=== PATIENT | male | born 1945 | race Hispanic/Latino ===

== ENCOUNTER → 2018-08-17 | Outpatient (CLI) | payer OTHER ==
[~2018-08-17] MED LIST: ATOR40TA69 PO; CLOP75TA14 PO; GLIP10TA9 PO; LISI40TA4 PO; METF-446 PO; TRAZ150T79 PO
== END | disposition home or self-care (01) ==
LOC: SHCH 09:07
PROVIDERS: ATTEND Internal Medicine Cardiovascular Disease
DX: I08.0 Rheumatic disorders of both mitral and aortic valves (principal); I25.10 Atherosclerotic heart disease of native coronary artery without angina pectoris; I11.9 Hypertensive heart disease without heart failure
CPT/HCPCS: 93306

== ENCOUNTER → 2019-12-07 | Outpatient (CLI) | payer OTHER | END | disposition home or self-care (01) | LOC: SHCH 12:44 | PROVIDERS: ATTEND Internal Medicine Cardiovascular Disease | DX: I65.23 Occlusion and stenosis of bilateral carotid arteries (principal); I25.5 Ischemic cardiomyopathy | CPT/HCPCS: 93880 ==

== ENCOUNTER → 2020-02-05 | Outpatient (CLI) | payer OTHER | END | disposition home or self-care (01) | LOC: SHCH 08:22 | PROVIDERS: ATTEND Internal Medicine Cardiovascular Disease | DX: I08.0 Rheumatic disorders of both mitral and aortic valves (principal); I25.10 Atherosclerotic heart disease of native coronary artery without angina pectoris; I10 Essential (primary) hypertension; E78.5 Hyperlipidemia, unspecified | CPT/HCPCS: 93306; 93356 ==

== ENCOUNTER 2020-03-07 06:47 | Day surgery (SDC) | payer OTHER ==
[2020-03-05 13:03] LABS: BASOPHILS % (AUTO) 0.4 % (0.0-5.0); EOSINOPHILS % (AUTO) 2.5 % (0.0-8.0); HEMATOCRIT 37.3 % (42-54); LYMPHOCYTES % (AUTO) 18.6 % (21.0-51.0); MEAN CORPUSCULAR HGB CONC 32.7 g/dL (32.0-36.0); MEAN CORPUSCULAR VOLUME 103.9 fL (79-99); MONOCYTES % (AUTO) 6.8 % (3.0-13.0); NEUTROPHILS % (AUTO) 71.4 % (40.0-77.0); PLATELET COUNT (AUTO) 189 K/uL (130-400); RED BLOOD CELL COUNT(AUTO) 3.59 MIL/uL (4.50-6.20); RED CELL DISTRIBUTION WIDTH 13.7 % (11.0-15.5); WHITE BLOOD COUNT (AUTO) 6.9 K/uL (4.8-10.8)
[2020-03-05 13:13] LABS: CREATININE 1.5 mg/dL (0.5-1.5); POTASSIUM 4.6 mmol/L (3.5-5.1)
[2020-03-05 13:14] LABS: INR 1.02 (0.85-1.15); PROTHROMBIN TIME 10.9 SEC (9.6-11.6)
[2020-03-05 13:15] LABS: PARTIAL THROMBOPLASTIN TIME 27.1 SEC (26.3-35.5)
[2020-03-06 09:18] VITALS: BP 140/73
[~2020-03-07] VITALS: Ht 165.1 cm; Wt 74.8 kg
[2020-03-07] VITALS (12 sets, daily range): BP systolic 117–163; BP diastolic 74–90
[~2020-03-07 06:47] MED LIST changes: -ATOR40TA69 PO; +CLINDAMYCIN 900 MG/D5% WATER 50 ML IV SCH; +DIETARY SUPPLEMENT PO; +SODIUM CHLORIDE 0.9% 1000ML 1,000 ML IV SCH
[2020-03-07] MEDS ORDERED: IODIXANOL 320 MG/ML 100 ML VIAL ONE (08:38)
[2020-03-07] MEDS ORDERED: MEPERIDINE-PF 25 MG/ML SYG ONE ×3 (08:39→10:10)
[2020-03-07] MEDS ORDERED: LIDOCAINE HCL 1% MDV 50ML VIAL ONE (08:39)
[2020-03-07] MEDS ORDERED: MIDAZOLAM HCL 1 MG/ML 2ML VIAL ONE ×3 (08:39→10:10)
[2020-03-07] MEDS ORDERED: VANCOMYCIN 1GM+NS 250ML 500 ML IV ONE (08:40)
[2020-03-07] MEDS ORDERED: BUPIVACAINE/PF 0.25% 30ML VIAL IJ ONE (09:02)
[2020-03-07] MEDS ORDERED: GLUCAGON 1MG KIT 1 MG ML IM PRN (11:00)
[2020-03-07] MEDS ORDERED: DEXTROSE 50%-WATER 50 ML DISP.SYRIN IV PRN (11:00)
[2020-03-07] MEDS ORDERED: ONDANSETRON HCL 4 MG/2 ML VIAL IV PRN (11:00)
[2020-03-07] MEDS ORDERED: ACETAMINOPHEN 325 MG TAB PO PRN (11:00)
[2020-03-07] MEDS ORDERED: INSULIN HUMULIN R 100 UNIT/ML 3ML SQ SCH (11:30)
== END 2020-03-07 18:10 | disposition home or self-care (01) ==
LOC: DAH 06:47
PROVIDERS: ATTEND Internal Medicine Cardiovascular Disease
DX: I25.5 Ischemic cardiomyopathy (principal); I44.7 Left bundle-branch block, unspecified; I11.0 Hypertensive heart disease with heart failure; I50.43 Acute on chronic combined systolic (congestive) and diastolic (congestive) heart failure; I25.10 Atherosclerotic heart disease of native coronary artery without angina pectoris; E11.51 Type 2 diabetes mellitus with diabetic peripheral angiopathy without gangrene; E78.5 Hyperlipidemia, unspecified; Z88.1 Allergy status to other antibiotic agents; Z88.0 Allergy status to penicillin; Z79.84 Long term (current) use of oral hypoglycemic drugs; Z79.899 Other long term (current) drug therapy; Z79.01 Long term (current) use of anticoagulants; Z95.5 Presence of coronary angioplasty implant and graft; Z98.890 Other specified postprocedural states
CPT/HCPCS: 33225; 33249; 36415; 71045; 80048; 82948 ×2; 85025; 85610; 85730; 93005; A4215; A4216; A4221; A4222; A4223 ×3; A4606; A4663; C1769 ×3; C1882; C1894; C1895; C1896; C1900; J2175 ×3; J2250 ×3; J3370; J3490 ×2; Q9967; 99156; 99157

== ENCOUNTER 2020-05-01 09:46 | Observation (INO) | payer OTHER ==
[~2020-05-01] VITALS: Ht 165.1 cm; Wt 70.5 kg
[~2020-05-01 09:46] MED LIST changes: -CLINDAMYCIN 900 MG/D5% WATER 50 ML IV SCH; -LISI40TA4 PO; -SODIUM CHLORIDE 0.9% 1000ML 1,000 ML IV SCH
[2020-05-01] MEDS ORDERED: FUROSEMIDE 10 MG/ML 4ML VIAL ONE (10:09)
[2020-05-01 10:39] LABS: BASOPHILS % (AUTO) 0.4 % (0.0-5.0); EOSINOPHILS % (AUTO) 3.9 % (0.0-8.0); HEMATOCRIT 37.7 % (42-54); LYMPHOCYTES % (AUTO) 14.6 % (21.0-51.0); MEAN CORPUSCULAR HGB CONC 32.4 g/dL (32.0-36.0); MEAN CORPUSCULAR VOLUME 101.9 fL (79-99); MONOCYTES % (AUTO) 8.5 % (3.0-13.0); NEUTROPHILS % (AUTO) 72.1 % (40.0-77.0); PLATELET COUNT (AUTO) 155 K/uL (130-400); RED CELL DISTRIBUTION WIDTH 14.5 % (11.0-15.5); WHITE BLOOD COUNT (AUTO) 7.9 K/uL (4.8-10.8)
[2020-05-01 10:56] LABS: POTASSIUM 3.9 mmol/L (3.5-5.1)
[2020-05-01 11:13] LABS: ALBUMIN 3.8 g/dL (3.5-5.0); BILIRUBIN,TOTAL 0.4 mg/dL (0.2-1.0); CREATININE 1.5 mg/dL (0.5-1.5); TOTAL PROTEIN, SERUM 9.1 g/dL (6.0-8.3)
[2020-05-01 11:16] LABS: B-TYPE NATRIURETIC PEPTIDE 842 pg/mL (0-100)
[2020-05-01] MEDS ORDERED: IPRATROPIUM/ALBUTEROL SULFATE 3 ML SOLUTION IH PRN (12:00)
[2020-05-01 12:39] LABS: HEMOGLOBIN A1C 7.7 % (4.0-6.0)
[2020-05-01 12:44] LABS: THYROID STIMULATING HORMONE 2.01 uIU/mL (0.36-3.74)
[2020-05-01] MEDS ORDERED: THIAMINE HCL 100 MG TABLET PO SCH (16:00)
[2020-05-01] MEDS ORDERED: FOLIC ACID 1 MG TABLET PO SCH (16:00)
[2020-05-01] MEDS ORDERED: DOXYCYCLINE 100MG+NS 250ML 250 ML IV ONE (16:08)
[2020-05-01] MEDS: INSULIN HUMULIN R 100 UNIT/ML 3ML SQ SCH ×2 (16:30→21:28)
[2020-05-01 17:00] VITALS: BP 131/78
[2020-05-01] MEDS: DOXYCYCLINE 100MG+NS 250ML 250 ML IV SCH (17:00)
[2020-05-01] MEDS: FUROSEMIDE 10 MG/ML 4ML VIAL IV SCH (18:22)
[2020-05-01] MEDS: ENOXAPARIN SODIUM 40 MG/0.4 ML SYRINGE SQ SCH (18:23)
[2020-05-01 20:36] VITALS: BP 131/82
[2020-05-01] MEDS: CARVEDILOL 3.125 MG TABLET PO SCH (21:26)
[2020-05-01] MEDS: FAMOTIDINE 20MG TAB 20 MG TAB PO SCH (21:26)
[2020-05-01 23:24] VITALS: BP 115/70
[2020-05-02 04:24] VITALS: BP 166/84
[2020-05-02] MEDS: FUROSEMIDE 10 MG/ML 4ML VIAL IV SCH (05:34)
[2020-05-02] MEDS: DOXYCYCLINE 100MG+NS 250ML 250 ML IV SCH (05:34)
[2020-05-02 05:36] LABS: BASOPHILS % (AUTO) 0.4 % (0.0-5.0); EOSINOPHILS % (AUTO) 5.3 % (0.0-8.0); HEMATOCRIT 36.4 % (42-54); MEAN CORPUSCULAR HEMOGLOBIN 32.9 pg (27.0-33.0); MEAN CORPUSCULAR HGB CONC 33.5 g/dL (32.0-36.0); MEAN CORPUSCULAR VOLUME 98.1 fL (79-99); NEUTROPHILS % (AUTO) 57.5 % (40.0-77.0); PLATELET COUNT (AUTO) 168 K/uL (130-400); RED BLOOD CELL COUNT(AUTO) 3.71 MIL/uL (4.50-6.20); RED CELL DISTRIBUTION WIDTH 14.1 % (11.0-15.5); WHITE BLOOD COUNT (AUTO) 7.5 K/uL (4.8-10.8)
[2020-05-02 06:09] LABS: ALBUMIN 3.6 g/dL (3.5-5.0); BILIRUBIN,TOTAL 0.5 mg/dL (0.2-1.0); CREATININE 1.7 mg/dL (0.5-1.5); MAGNESIUM 1.7 mg/dL (1.80-2.40); POTASSIUM 4.4 mmol/L (3.5-5.1); TOTAL PROTEIN, SERUM 7.8 g/dL (6.0-8.3)
[2020-05-02] MEDS: INSULIN HUMULIN R 100 UNIT/ML 3ML SQ SCH ×2 (06:21→12:56)
[2020-05-02 08:18] VITALS: BP 142/89
[2020-05-02] MEDS ORDERED: ASPIRIN 81MG TAB.CHEW PO SCH (09:00)
[2020-05-02] MEDS ORDERED: THIAMINE HCL 100 MG TABLET PO SCH (09:00)
[2020-05-02] MEDS ORDERED: FOLIC ACID 1 MG TABLET PO SCH (09:00)
[2020-05-02] MEDS: FAMOTIDINE 20MG TAB 20 MG TAB PO SCH (10:04)
[2020-05-02] MEDS: CARVEDILOL 3.125 MG TABLET PO SCH (10:06)
[2020-05-02] MEDS: ENOXAPARIN SODIUM 40 MG/0.4 ML SYRINGE SQ SCH (10:07)
[2020-05-02] MEDS ORDERED: AZITHROMYCIN 250 MG TABLET PO SCH (11:45)
[2020-05-02] MEDS ORDERED: PREDNISONE 20 MG TABLET PO SCH (12:00)
[2020-05-02 12:05] VITALS: BP 128/75
[2020-05-02] MEDS ORDERED: ALBU8.5H8 IH (15:26)
[2020-05-02] MEDS ORDERED: CARV3.1262 PO (15:26)
[2020-05-02] MEDS ORDERED: AZIT250T PO (15:26)
[2020-05-02] MEDS ORDERED: PRED20TA3 PO (15:26)
[2020-05-03] MEDS ORDERED: NICOTINE 14 MG/ 24 HR PATCH TD SCH (09:00)
== END 2020-05-02 16:55 | disposition home or self-care (01) ==
LOC: EDH 09:46 → OBSVTOIN 09:47 → EDHIP 09:47 → INTOOBSV 09:47 → 4BH 16:31
PROVIDERS: ADMIT Internal Medicine; ATTEND Internal Medicine
DX: J96.01 Acute respiratory failure with hypoxia (principal); Z20.822 Contact with and (suspected) exposure to COVID-19; I13.0 Hypertensive heart and chronic kidney disease with heart failure and stage 1 through stage 4 chronic kidney disease, or unspecified chronic kidney disease; E11.22 Type 2 diabetes mellitus with diabetic chronic kidney disease; N18.9 Chronic kidney disease, unspecified; I50.23 Acute on chronic systolic (congestive) heart failure; I25.5 Ischemic cardiomyopathy; I25.10 Atherosclerotic heart disease of native coronary artery without angina pectoris; J84.10 Pulmonary fibrosis, unspecified; E78.5 Hyperlipidemia, unspecified; E11.51 Type 2 diabetes mellitus with diabetic peripheral angiopathy without gangrene; E11.65 Type 2 diabetes mellitus with hyperglycemia; N17.9 Acute kidney failure, unspecified; D75.89 Other specified diseases of blood and blood-forming organs; H91.90 Unspecified hearing loss, unspecified ear; J44.9 Chronic obstructive pulmonary disease, unspecified; F17.200 Nicotine dependence, unspecified, uncomplicated; Z95.1 Presence of aortocoronary bypass graft; Z79.84 Long term (current) use of oral hypoglycemic drugs; Z79.899 Other long term (current) drug therapy; Z88.0 Allergy status to penicillin
CPT/HCPCS: 36415 ×2; 71046; 71250; 80053 ×2; 80061; 82607; 82728; 82746; 82948 ×3; 83036; 83615; 83735; 83880; 84145; 84443; 84484; 85025 ×2; 85378; 86140; 87426; 93005; 93970; 96365; 96366; 96372 ×2; 96375; 96376; 99285; G0378 ×29; J1650 ×2; J1815; J1940 ×3; J3490 ×2; U0003